=== PATIENT | male | born 1975 | race Caucasian/White ===

== ENCOUNTER 2016-08-07 19:24 | Emergency (ER) | payer OTHER ==
[2016-08-07 20:55] VITALS: BP 119/72; O2SAT 98
[2016-08-07] MEDS ORDERED: CHLORHEXIDINE GLUCONATE 4 % 15 ML UD TOP ONE (21:23)
[2016-08-07] MEDS ORDERED: LIDOCAINE 1% W/ EPINEPHRINE 20 ML VIAL INJ ONE (21:26)
[2016-08-07] MEDS ORDERED: IODOFORM 1/4 INCH 1 EA BTTL TOP ONE (21:30)
[2016-08-07] MEDS ORDERED: MORPHINE SULFATE INJ 10 MG/ML VIAL IM ONE (21:58)
--- NOTE | 2016-08-07 22:00 | ED.PDOC ---
History of Present Illness - General Chief Complaint: Skin/Abrasion/Tear Stated Complaint: absess on lower back Time Seen by Provider: 08/07/16 20:50 Source: patient, RN notes reviewed, Vital Signs reviewed Exam Limitations: no limitations - History of Present Illness Initial Comments: This 41 y/o male has had an abscess on his left upper buttock for 2 days. Pain is severe. + fever. Timing/Duration: getting worse, other - 2 days Severity: severe Location: torso Worsening Factors: nothing Associated Symptoms: change in skin texture, swelling/mass/lumps Allergies/Adverse Reactions: Allergies NO KNOWN ALLERGY Allergy (Verified 08/07/16 20:55) Home Medications: Ambulatory Orders Acetaminophen W/ Codeine [Tylenol W/ CODEINE #3] 1 ea PO Q6H PRN #15 08/07/16 Sulfamethoxazole-Trimethoprim [Bactrim Ds 800-160 mg] 1 tab PO BID #14 tab 08/07 Review of Systems - Review of Systems Constitutional: States: chills, fever EENTM: States: no symptoms reported Respiratory: States: no symptoms reported Cardiology: States: no symptoms reported Gastrointestinal/Abdominal: States: no symptoms reported Genitourinary: States: no symptoms reported Musculoskeletal: States: no symptoms reported Skin: States: other - abscess Neurological: States: no symptoms reported Endocrine: States: no symptoms reported Hematologic/Lymphatic: States: no symptoms reported Past Medical History (General) - Vaccination History Hx Tetanus, Diphtheria Vaccination: - 2008 Hx Influenza Vaccination: No - Triage Comment ED Triage Comment: absess to lower back Family Medical History - Family History Father Family History: Unknown Physical Exam - Physical Exam General Appearance: Alert, Anxious, Obvious distress, Obese Eyes, Ears, Nose, Throat Exam: normal ENT inspection Neck: full range of motion Respiratory: no respiratory distress Extremity: normal range of motion Neurologic: alert, normal mood/affect, oriented x 3 Skin Exam: warm/dry, normal color Skin Problem Location: torso - upper left buttock Skin Character: abscess, drainage, erythema, tenderness, thickening, other - erythema 4 cm diameter with induration that extended about 1 cm past erythema. Progress - Results/Orders Results/Orders: 08/07/16 20:50 Temperature 100.9 F H Pulse Rate [ 91 H left] Respiratory 20 Rate Blood Pressure 119/72 [left] O2 Sat by Pulse 98 Oximetry Culture obtained. Procedures - Incision and Drainage #1 Site: upper left buttock Procedure and Prep: gauze wick placed, irrigated, wound culture collected, pus drained, other - Hebiclens prep Blade Size: 11 Procedure Comments: Lidocain with epi 5 ml used to anesthetize. 1 cm incision made in center of abscess. Cellulitis is deep, >1 cm. A small amount of purulent drainage was expressed. Patient tolerated procedure well. Departure - Departure Clinical Impression: Abscess ICD-10 Supporting Text: Upper left buttock. Time of Disposition: 22:07 Disposition: Discharge to Home or Self Care Condition: Excellent Departure Forms: ED Discharge - Pt. Copy, Patient Portal Self Enrollment Instructions: DI for Incision and Drainage of a Skin Abscess, Incision and Drainage of a Skin Abscess Diet: resume usual diet Prescriptions: Sulfamethoxazole-Trimethoprim [Bactrim Ds 800-160 mg] 1 tab PO BID #14 tab Acetaminophen W/ Codeine [Tylenol W/ CODEINE #3] 1 ea PO Q6H PRN #15 PRN Reason: Pain Home Medications: Ambulatory Orders Acetaminophen W/ Codeine [Tylenol W/ CODEINE #3] 1 ea PO Q6H PRN #15 08/07/16 Sulfamethoxazole-Trimethoprim [Bactrim Ds 800-160 mg] 1 tab PO BID #14 tab 08/07 Additional Instructions: Follow up if symptoms persist or worsen. Follow up in ED or with PCP for re- packing of wound in 2 days.
[2016-08-07] MEDS ORDERED: ACETAMINOPHEN W/COD #3 TAB (ER Disp) PO ONE (22:10)
[2016-08-07] MEDS ORDERED: SULFA/TRIMETH 800/160 (DS) TAB 1 EA TAB PO ONE (22:10)
[2016-08-07 23:25] VITALS: TEMP 98.9
== END 2016-08-07 22:15 | disposition home or self-care (01) ==
LOC: ER 19:24
DX: L02.31 Cutaneous abscess of buttock (principal)